=== PATIENT | male | born 1950 | race Caucasian/White ===

== ENCOUNTER 2018-04-10 12:27 | Emergency (ER) | payer OTHER ==
[2018-04-10] MEDS: LIDOCAINE 1% (MDV) 10 ML INJ INJ (13:17)
[2018-04-10] MEDS: LIDOCAINE 1% (MPF) 5 ML VIAL INJ (13:30)
== END 2018-04-10 14:24 | disposition home or self-care (01) ==
LOC: FTE 12:27
DX: S01.511A Laceration without foreign body of lip, initial encounter (principal); I10 Essential (primary) hypertension; W01.0XXA Fall on same level from slipping, tripping and stumbling without subsequent striking against object, initial encounter; Y92.9 Unspecified place or not applicable; Z87.891 Personal history of nicotine dependence
CPT/HCPCS: 12011; 70450; 70486; 73130-LT; 99284-25